=== PATIENT | male | born 1950 ===

== ENCOUNTER → 2017-03-21 | Outpatient (CLI) | payer BC ==
[~2017-03-21] VITALS: Ht 180.3 cm; Wt 84.5 kg
[2017-03-21 11:48] VITALS: BP 135/69
== END | disposition home or self-care (01) ==
LOC: SRCNTR 11:39
PROVIDERS: ATTEND Internal Medicine Clinical Cardiac Electrophysiology
DX: Z45.018 Encounter for adjustment and management of other part of cardiac pacemaker (principal); I10 Essential (primary) hypertension; I49.5 Sick sinus syndrome; Z90.49 Acquired absence of other specified parts of digestive tract
CPT/HCPCS: 93288; G0463